=== PATIENT | male | born 1985 | race Caucasian/White ===

== ENCOUNTER → 2024-04-22 14:04 | Outpatient (REF) | payer OTHER, SELFPAY | LOC: PAVMRI 14:04 | PROVIDERS: ATTENDING PHYSICIAN Physical Medicine & Rehabilitation Pain Medicine | DX: M54.12 Radiculopathy, cervical region (principal) | CPT/HCPCS: 72141 ==

== ENCOUNTER 2024-07-21 20:39 | Emergency (ER) | payer OTHER, SELFPAY ==
[2024-07-21 20:43] VITALS: BP 146/96
--- NOTE | 2024-07-21 22:00 | ED.GENMED ---
History of Present Illness
General
Chief Complaint: Headache
Source: patient and spouse
Exam Limitations: other (patient is deaf and reads sign language)
Time Seen by Provider: 07/21/24 21:45
History of Present Illness
History of Present Illness:
This is a 39 year old male that comes in with c/o migraine. states that he has had a migraine all day and has been vomiting. States that he is light sensitive and that he is unable to keep anything down. States that he can't even keep water down.
States that this is the 4th migraine in the past 3 months and feels that he needs a CT scan of the head. States that he is also dizzy with the headache and has pain behind the eyes and all over the head. Denies any fever, chills, chest pain, SOB,
abd pain, diarrhea, urinary burning.
Past History
Past History
ED Past Medical History: Asthma (as child ), Psychiatric (Depression) and Other (Deaf)
ED Past Surgical History: None
Social History
Tobacco: Former smoker
Alcohol: Occasional
Drug: Marijuana
Personal:
Living: with family
Review of Systems
Review of Systems
All Other Systems: ROS reviewed and negative except as documented in HPI and ROS
Constitutional: Reports no symptoms; Denies fever or chills
EENT: Reports no symptoms
Respiratory: Reports no symptoms; Denies cough or trouble breathing
Cardiac: Reports no symptoms; Denies chest pain
ABD/GI: Reports nausea and vomiting; Denies abdominal pain or diarrhea
: Reports no symptoms; Denies dysuria, frequency or urgency
Musculoskeletal: Reports no symptoms
Skin: Reports no symptoms
Neurological: Reports dizzy, headache and other (Light sensative)
Psychiatric: Reports no symptoms
Phy Exam
General Physical Exam
General Presentation: no apparent distress
General age: appears stated age
General Skin: warm and dry
General Habitus: normal
General Mental: alert
General Hydration: dry mucous membranes
ENT Exam
ENT Exam: TM's normal, pharynx normal and neck supple
Eye Exam
Eye Exam: EOMI
Cardiovascular Exam
Cardiovascular Exam: regular rate/rhythm, no edema, no murmur and normal peripheral pulses
Pulmonary Exam
Pulmonary Exam: lungs clear, no respiratory distress, no rales, chest non tender, no crackles, no rhonchi, no wheezing and no cough
Gastrointestinal Exam
Gastrointestinal Exam: normal bowel sounds, non tender, soft, no organomegaly, no pulsatile mass and non distended
Musculoskeletal Exam
Musculoskeletal Exam: full ROM and no edema
Skin Exam
Skin Exam: normal color, warm/dry, no rash and no petechia
Psychiatric Exam
Psychiatric Exam: normal mood/affect
Course
Orders/Labs/Results
Orders:
Orders
07/21/24 20:[address] [CT Head W/o Iv Contrast] Urgent
Comment:
Reason For Exam: migraine
07/21/24 21:59
0.9% Sodium Chloride 1000 ml [Nss] 1,000 ml IV BOLUS
Acetaminophen [Tylenol] 1,000 mg PO NOW STA
Dexamethasone Sod Phosphate [Decadron] 20 mg IV NOW STA
Diphenhydramine [Benadryl] 25 mg IV NOW STA
Ketorolac [Toradol] 30 mg IV NOW STA
Prochlorperazine [Compazine] 5 mg IV NOW STA
07/21/24 22:28
Complete Blood Count/With Diff Urgent
07/22/24 00:10
Comprehensive Metabolic Panel Urgent
Abnormal Lab Results
07/21/24 07/22/24
22:28 00:10
WBC 15.1 H 10^3/uL
(4.8-10.8)
RBC 4.50 L 10^6/uL
(4.70-6.10)
MCH 32.2 H pg
(27.0-31.0)
Abs Immat Gran (auto) 0.1 H 10^3/uL
(0-0.05)
Absolute Neuts (auto) 11.0 H 10^3/uL
(1.4-6.5)
Absolute Monos (auto) 1.1 H 10^3/uL
(0.1-0.6)
Lymphocytes % 19.1 L %
(20.5-51.1)
Glucose 103 H mg/dl
(70-99)
ALT 66 H U/L
(0-50)
07/21/24 22:28
07/22/24 00:10
Leukocytosis, Glucose nonfasting and slightly elevated. ALT elevation.
Vital Signs
Initial and Last Documented VS:
Initial Vital Signs
Temp Pulse Resp BP Pulse Ox
97.5 F 78 16 146/96 99
07/21/24 20:43 07/21/24 20:43 07/21/24 20:43 07/21/24 20:43 07/21/24 20:43
Last Documented Vital Signs
Temp Pulse Resp BP Pulse Ox
97.5 F 69 16 130/80 96
07/21/24 20:43 07/22/24 00:43 07/21/24 20:43 07/22/24 00:43 07/22/24 00:43
MDM/Problems Addressed
Differential Diagnosis Includes:
Migraines,
MDM/Problems Addressed:
This is a 39 year old male that comes in with c/o migraines. States that this is his 4th one in the past 3 months and he would like a CT scan. States that he came in for help.
Will check labs, Give IV fluids and medicate for pain. Will also get CT of the head.
Back into see patient and . Explained that his blood work shows that his WBC are elevated. This can happen with stress. CT of the head is normal. patient states that he is feeling much better. Explained that he has to increase his water intake
to 8-8oz glasses daily. Follow up with the family doctor. If he continues to get Migraines he will have to see a Neurologist. Will discharge patient home.
Chronic conditions affecting care:
Migraines
Acute Exacerbation and/or Progression of Chronic Illness:
Migraines
*Radiology
Radiology exam reviewed: radiology read reviewed (CT head night hawk-NO acute intracranial findings. )
*Pulse Oximetry
Patient hypoxic: no
*EKG
Interpreted by ED Provider?: NA
Rate: EKG- N/A
*Dragline Operator Interpretation
Rate: Dragline Operator- N/A
*Critical Care Note
Total Time (30-74mins, 75-104mins- exclusive of procedures): Not Applicable
ED Attending Note
-
Portions of this chart may have been created with voice recognition software.� Occasional wrong word or��sound alike� substitutions may have occurred due to the inherent limitations of voice recognition software.
Discharge Plan
Departure
Patient Disposition: Home (Routine Discharge)
Date of Disposition: 07/22/24
Time of Disposition: 01:02
Patient with high blood pressure during this ER visit?: Yes
Condition: Good
Covid-19: Not Applicable
Discharge Problem:
Migraine
Instructions: Migraines (DC), BLOOD PRESSURE
Prescriptions:
No Action
hydrocodone-acetaminophen 5-325 mg tablet
1 tab PO Q6H PRN (Reason: pain) Qty: 10 0RF
Referrals:
Carrie Patel MD [Active] - As needed
UNKNOWN - PT DOES,NOT KNOW [Family Provider] -
Activity Restrictions/Additional Instructions:
As discussed, your blood work shows that your white blood cell count is elevated. This can happen with stress. Please increase your water intake to 8-8oz glasses daily. You may use Tylenol 1000mg every 6 hours and alternate with Ibuprofen 600mg
every 6 hours with food for headache pain. Follow up with the family doctor for recheck. If you continued getting migraines more frequently, you will need to follow up with the Neurologist. IF YOU HAVE ANY OTHER CONCERNS PLEASE RETURN TO THE
EMERGENCY ROOM. .
Interventions
Interventions:
*Risk Screen - Suicide Last Done: 07/21/24 20:43
*General Assessment Last Done: 07/21/24 20:43
*ED COVID-19 Vaccine History Last Done: 07/21/24 20:43
Discharge Date and Time
Print Language: SENEGALESE
[2024-07-21] MEDS: NSS 1000 IV (22:31)
[2024-07-21] MEDS: TORADOL 30 MG IV (22:31)
[2024-07-21] MEDS: BENADRYL 25 MG IV (22:32)
[2024-07-21] MEDS: TYLENOL 1000 MG PO (22:32)
[2024-07-21] MEDS: DECADRON 20 MG IV (22:32)
[2024-07-21] MEDS: COMPAZINE 5 MG IV (22:32)
[2024-07-21 22:54] LABS: % Basophils 0.3 % (0-2); % Eosinophils 0.1 % (0-6); % Immature Granulocytes 0.4 % (0-0.5); % Lymphocytes 19.1 % (20.5-51.1); % Monocytes 7.2 % (1.7-9.3); % Neutrophils 72.9 % (42.2-75.2); Absolute Basophils 0.1 10^3/uL (0-0.2); Absolute Immature Granulocytes 0.1 10^3/uL (0-0.05); Absolute Lymphocytes 2.9 10^3/uL (1.2-3.4); Absolute Monocytes 1.1 10^3/uL (0.1-0.6); Hematocrit 41.2 % (39.0-52.0); Hemoglobin 14.5 g/dL (13.0-18.0); Mean Corp Hgb Conc. 35.2 g/dL (33.0-37.0); Mean Corpuscular Hgb 32.2 pg (27.0-31.0); Mean Corpuscular Volume 91.6 fL (80.0-94.0); Mean Platelet Volume 8.4 fL (7.4-10.4); Nucleated Red Blood Cells % 0 % (-); Platelet Count 314 10^3/uL (130-400); White Blood Cell Count 15.1 10^3/uL (4.8-10.8)
[2024-07-22 00:38] LABS: ALT (SGPT) 66 U/L (0-50); AST (SGOT) 33 U/L (17-59); Albumin 4.1 g/dl (3.5-5.0); Alkaline Phosphatase 88 U/L (38-126); Blood Urea Nitrogen 9 mg/dl (9-20); Calcium 8.8 mg/dl (8.4-10.2); Carbon Dioxide 27 mmol/L (22-30); Chloride 106 mmol/L (98-107); Glucose 103 mg/dl (70-99); Sodium 138 mmol/L (135-145); Total Bilirubin 0.6 mg/dl (0.2-1.3); Total Protein 6.3 g/dl (6.3-8.2); eGFR > 60.00
[2024-07-22 00:43] VITALS: BP 130/80
[2024-07-22 01:13] VITALS: BP 132/74
== END 2024-07-22 01:14 | disposition home or self-care (01) ==
LOC: EMR 20:39
PROVIDERS: Clinical Nurse Specialist Family Health; EMERGENCY PHYSICIAN Emergency Medicine
DX: G43.909 Migraine, unspecified, not intractable, without status migrainosus (principal); J45.909 Unspecified asthma, uncomplicated; F32.A Depression, unspecified; H91.90 Unspecified hearing loss, unspecified ear; Z87.891 Personal history of nicotine dependence; D72.829 Elevated white blood cell count, unspecified
CPT/HCPCS: 99283; 96374; 96375; 96361; 70450; 80053; 85025